=== PATIENT | male | born 1955 | race Caucasian/White ===

== ENCOUNTER 2021-12-06 03:50 | Outpatient (CLI) | payer BC, MEDICARE, SELFPAY ==
[2021-12-06] MEDS: Albuterol HFA 18 GM 200 PUFF INH IH (14:42)
[2021-12-06] MEDS: Methacholine 100 MG VIAL IH (14:42)
[2021-12-06] MEDS: Inhaler, Assist Device 1 EACH MC (14:43)
--- NOTE | 2021-12-10 09:37 | PFT_ITS ---
Date of service: 12/06/21 Time of Service: 13:00 Pulmonary Function Test Result Requesting Provider Francisco Leavitt Indications: DENTON Interpretation Spirometry: There is no airflow limitaiton. The FVC is low. There is a significant decrease in FEV1% with methacholine administration (33% decrease with 1.0mg/mL). There is inspiratory blunting present at baseline. Lung Volumes: Normal lung volumes. Diffusion Capacity: Normal diffusion. Airway Pressure: Normal airways resistance. Impression Normal pulmonary function testing at baseline. Baseline low FVC is likely ps eudo-restriction from obesity given normal TLC. There was a positive methacholine test. The baseline inspiratory blunting may represent vocal cord dysfunction in the correct clinical setting. Clinical Correlation therefore is recommended.
== END 2021-12-06 03:51 | disposition home or self-care (01) ==
LOC: RT 03:52
PROVIDERS: Visit Provider Family Medicine
DX: R06.09 Other forms of dyspnea (principal)
CPT/HCPCS: 94060; 94070; 94726; 94729; 94010; J7674